=== PATIENT | female | born 1995 | race Caucasian/White ===

== ENCOUNTER 2021-06-12 21:40 | Emergency (ER) | payer MEDICAID, SELFPAY ==
[2021-06-12 21:42] VITALS: BP 162/83; PULSE 89; RESP 14; TEMP 35.7; O2SAT 99; BMI 46.0
--- NOTE | 2021-06-12 22:12 | RAD_ITS ---
INDICATION: pain EXAMINATION/TECHNIQUE: X-RAY - RIGHT XR Foot Min 3 Views 3 VIEWS COMPARISON: Right ankle x-rays from the same evening. FINDINGS: SOFT TISSUES: No soft tissue swelling or gas. No radiopaque foreign body. BONES/JOINTS: No acute fracture or malalignment. Preservation of the joint space and no degenerative bony proliferative changes. No sclerotic or destructive changes observed. RAD/Foot min 3 Views IMPRESSION: Negative. Electronically Signed: Yonatan Mack DO at 23:06 EST ,
--- NOTE | 2021-06-12 22:12 | RAD_ITS ---
INDICATION: pain EXAMINATION/TECHNIQUE: X-RAY - RIGHT XR Ankle Min 3 Views 3 VIEWS COMPARISON: Right foot x-rays obtained in conjunction with this exam. FINDINGS: SOFT TISSUES: Lateral ankle soft tissue swelling, mild. No joint effusion. No radiopaque foreign body. BONES/JOINTS: No acute fracture or malalignment. Preservation of the joint space and no degenerative bony proliferative changes. No sclerotic or destructive changes observed. RAD/Ankle min 3 Views IMPRESSION: Lateral ankle soft tissue swelling without fracture or malalignment. Electronically Signed: Yonatan Mack DO at 23:05 EST ,
--- NOTE | 2021-06-12 22:54 | EDS_ITS ---
HPI History of Present Illness Chief Complaint: Lower Extremity Injury Narrative Narrative: Patient is a 25-year-old female who states about 2 hours prior to arrival she was walking when she stepped awkwardly and rolled her right ankle inward. She states she fell to the ground but denies striking her head or any loss of consciousness. She states she has had pain and swelling with difficulty ambulating since the trauma. She states she broke her left ankle previously and she is concerned for fracture in the right with her fall and swelling and therefore comes in for evaluation. [facility] Medical History Cholecystectomy planned Perforated ulcer Home Medications hydrocodone-acetaminophen 1 tab PO Q6H PRN 3 Days #12 tab 06/12/21 [Rx Last Taken Unknown] Allergy/AdvReac Type Severity Reaction Status Date / Time No Known Allergies Allergy Verified 06/12/21 21:42 Surgical History (Updated 06/12/21 @ 21:50 by Neetu Markham) History of Social History Smoking Status: Never smoker [facility] ED Constitutional Constitutional ED: Denies chills or fever(s) ENT ENT ED: Denies sore throat Cardiovascular Cardiovascular: Denies chest pain Respiratory/Chest Respiratory/Chest: Denies cough or dyspnea Gastrointestinal Gastrointestinal: Denies abdominal pain, diarrhea, nausea or vomiting Genitourinary Genitourinary ED: Denies dysuria Musculoskeletal Musculoskeletal: Reports other Details: Positive right ankle pain ; Denies myalgias Integumentary Denies rash Neurologic Neurologic: Denies headache(s) Hematologic/Lymphatic Hematologic/Lymphatic: Denies easy bleeding or easy bruising EXAM Physical Exam Const Vital Signs: 06/12/21 21:42 Temperature 96.2 F L Temperature Source Temporal Pulse Rate 89 Respiratory Rate 14 Blood Pressure 162/83 H Blood Pressure Mean 109 Pulse Ox 99 Oxygen Delivery Method Room Air Positive well nourished and well developed General Appearance ED: well developed Eyes PERRL and EOMs intact bilaterally Neck supple Resp normal respiratory effort and clear to auscultation bilaterally Cardio regular rate and regular rhythm Extremity Extremity Narrative: There is soft tissue swelling to the right lower extremity over top the lateral malleolus. There is pain with palpation at the site. There is no obvious bony deformity or joint effusion. The right lower extremity is neurovascularly intact. The Achilles tendon is intact and ankle ligaments are stable. There is faint pain on palpation over top the second metatarsal of the foot. Otherwise remainder the exam is normal. Neuro oriented x3 and CN's II-XII intact bilaterally Sensorium / Orientation: alert Psych mental status grossly normal Skin no rashes or lesions noted Skin Narrative: Soft tissue swelling over top the right lateral malleolus as documented above MDM MDM MDM Narrative Medical decision making narrative: Patient presented to the ER after mechanical fall so there is no need for cardiac or syncope work-up. X-rays were obtained because of the pain and swelling and it shows no acute fracture dislocation. There is no obvious ligamentous tear either. Therefore this time there is no need for emergent orthopedic consultation or further evaluation. Patient was placed in a walking boot for stabilization and is otherwise safe for discharge. Radiography Diagnostic Testing: Clinical Impression(s) from Imaging Studies Ankle X-Ray 06/12/21 22:12 IMPRESSION: Lateral ankle soft tissue swelling without fracture or malalignment. Electronically Signed: Yonatan Mack DO at 23:05 EST , Foot X-Ray 06/12/21 22:12 IMPRESSION: Negative. Electronically Signed: Yonatan Mack DO at 23:06 EST , Discharge Plan Triage Chief Complaint: Lower Extremity Injury ED Provider: Suhas Barraza Dx/Rx/DC Orders Clinical Impression: Right ankle sprain Instructions: ED Ankle Sprain (Adult) Prescriptions: New hydrocodone-acetaminophen 5-325 mg tablet 1 tab PO Q6H PRN (Reason: pain) 3 Days Qty: 12 RF: 0 Primary Care Provider: Care Physician,No Primary Referrals: April Malloy MD [STAFF PHYSICIAN] - 1 Week if not improving Care Physician,No Primary [Primary Care Provider] - Activity Restrictions/Additional Instructions: Please wear your walking boot while up and moving for the next 1 to 2 weeks to help with stabilization of your sprained ankle and return the ER should you have any further concerns Disposition Disposition: Home, Self Care
== END 2021-06-12 23:37 | disposition home or self-care (01) ==
PROVIDERS: Emergency Provider Emergency Medicine; Visit Provider Emergency Medicine
DX: S93.401A Sprain of unspecified ligament of right ankle, initial encounter (principal); W19.XXXA Unspecified fall, initial encounter
CPT/HCPCS: 73610; 73630; 99283

== ENCOUNTER 2021-12-14 11:33 | Emergency (ER) | payer MEDICAID, SELFPAY ==
[2021-12-14 11:34] VITALS: BP 139/95; PULSE 92; RESP 16; TEMP 36.3; O2SAT 97; BMI 46.6
--- NOTE | 2021-12-14 11:47 | CT_ITS ---
STUDY: CT ABDOMEN AND PELVIS WITHOUT CONTRAST REASON FOR EXAM: Female, 26 years old. Pain RADIATION DOSAGE (If Supplied By Facility): CTDIvol = ( 24.09 ) mGy, DLP = ( 1324.31 ) mGycm TECHNIQUE: Transaxial images were obtained from the dome of the diaphragm to the symphysis pubis without oral contrast, and without intravenous contrast. Sagittal and coronal images were reconstructed. Individualized dose optimization techniques were used for this CT. COMPARISON: None. FINDINGS: The visualized lung bases are unremarkable. The visualized portions of the heart are within normal limits. There is decreased attenuation of the liver consistent with steatosis. There are surgical clips in the gallbladder fossa consistent with a prior cholecystectomy. Normal spleen. Normal pancreas. Normal bilateral adrenal glands. Normal right kidney. Normal left kidney. Normal visualized stomach. Normal small intestine. Normal colon. The appendix is visualized and appears normal. Normal abdominal aorta. Normal inferior vena cava. Normal retroperitoneum. Normal urinary bladder. Normal abdominal wall. Normal osseous structures. CT/Abdomen/Pelvis without Cont IMPRESSION: No acute abnormality. Electronically Signed: Yoni Vang MD at 13:32 EDT ,
--- NOTE | 2021-12-14 11:48 | ED.VIS.GI ---
HPI HPI - GI History of Present Illness Chief Complaint: Abd Pain Detail of Chief Complaint: Abdominal pain off and on x2 weeks Informant: patient Abdominal Pain/Flank Pain Current Severity: 8/10 Nausea/Vomiting/Emesis GI Symptom: Positive for Nausea Narrative Narrative: Patient presents the emergency department abdominal pain off and on for 2 weeks. Patient states over the last several days has been more continuous and more painful to the right side of the abdomen. Food seems to increase her nausea and she has been quite nauseated but has not vomited. Patient states she felt similarly before she needed to have her gallbladder removed. Patient also has history of a perforated peptic ulcer as a child that required surgery. Patient denies any hematemesis or black tarry stools. Last menstrual period was November 18. Patient denies dysuria. She denies fevers. [facility] Medical History Cholecystectomy planned Perforated ulcer Home Medications hydrocodone-acetaminophen 5-325mg 5mg-325mg 1 tab PO Q4H PRN PRN Pain 2 days #10 TABLETS 12/14/21 [Rx Last Taken Unknown] ondansetron 4 mg disintegrating tablet 4 mg PO Q8H PRN PRN Nausea #10 tabs 12/14/21 [Rx Last Taken Unknown] Allergy/AdvReac Type Severity Reaction Status Date / Time No Known Allergies Allergy Verified 12/14/21 11:33 Surgical History History of Social History Smoking Status: Never smoker ROS ROS ED Review of Systems ROS Unobtainable: other Constitutional Constitutional ED: Reports lethargy; Denies chills, fever(s), sweats or weight loss Eyes Eyes: Denies blurry vision, change in vision or diplopia ENT ENT ED: Denies rhinorrhea or sore throat Cardiovascular Cardiovascular: Denies chest pain, orthopnea or racing heartbeat Respiratory/Chest Respiratory/Chest: Denies cough, dyspnea, dyspnea on exertion, orthopnea or sputum Gastrointestinal Gastrointestinal: Reports abdominal pain and nausea; Denies diarrhea or vomiting Genitourinary Genitourinary ED: Denies dysuria, hematuria or urinary frequency Musculoskeletal Musculoskeletal: Denies arthralgias, back pain, myalgias or neck pain Integumentary Denies abscess, Abrasions or rash Neurologic Neurologic: Denies headache(s) or weakness Psychiatric Psychiatric: Denies anxiety, depression or suicidal thoughts Endocrine Endocrinology: Denies polydipsia, polyphagia or polyuria Hematologic/Lymphatic Hematologic/Lymphatic: Denies easy bleeding, easy bruising or lymphadenopathy Allergic/Immunologic Allergic/Immunologic ED: Denies mouth swelling, tongue swelling or urticaria EXAM Physical Exam Const Vital Signs: 12/14/21 11:34 Temperature 97.4 F L Temperature Source Temporal Pulse Rate 92 Respiratory Rate 16 Blood Pressure 139/95 H Blood Pressure Mean 109 Pulse Ox 97 Oxygen Delivery Method Room Air Positive well nourished and well developed General Appearance ED: well developed and NAD HEENT Reports TM's clear and moist mucous membranes normocephalic and atraumatic; Negative for trauma or tenderness Tympanic Membrane ED: Yes TM's clear Eyes PERRL and EOMs intact bilaterally General Eye ED: Negative for pale conjunctiva or scleral icterus Neck no lymphadenopathy, supple and no JVD General: Negative for tenderness Chest Wall inspection of chest normal and palpation of chest normal Chest: Negative for tenderness Resp normal respiratory effort and clear to auscultation bilaterally Effort and Inspection: Negative for respiratory distress or pain with movement Auscultation: Negative for rhonchi, wheezes or diminished lung sounds Cardio regular rate, regular rhythm, S1 normal heart sound, S2 normal heart sound and no murmurs Peripheral Pulses: pulses 2+ throughout GI normal to inspection, nondistended, normoactive bowel sounds, soft to palpation, non-distended and no masses GI Narrative: Patient with diffuse tenderness over the right upper quadrant and epigastric region. She is got some mild tenderness over the suprapubic region and right lower quadrant. There are some guarding. There is no rebound, rigidity, or peritoneal signs. Back/Spine no CVA tenderness and no thoracic nor lumbar tenderness Extremity normal to inspection General Extremety ED: Negative for edema General Extremity: Negative for edema Neuro oriented x3, CN's II-XII intact bilaterally, no sensory deficits noted and gait normal Sensorium / Orientation: awake, alert, oriented to person, oriented to place and oriented to time Motor Exam: strength 5/5 throughout and strength abnormal Psych mental status grossly normal Skin no rashes or lesions noted and no wounds MDM MDM MDM Narrative Medical decision making narrative: IV line established on arrival. Patient was medicated with morphine and Zofran. Lab work-up was normal. CT scan of the abdomen pelvis was unremarkable. Urinalysis was normal. hCG was negative. This point etiology of her pain is unclear. Patient will be given a prescription for a few [place] and advised to follow-up with her primary care physician 3 to 5 days. Patient advised to return if worsening pain, fever, vomiting, or condition worsen anyway. Lab Data Attestation: I reviewed the patient's lab results. Labs: Laboratory Results - last 24 hr 12/14/21 12/14/21 12/14/21 12:08 12:08 12:08 WBC 9.2 RBC 4.73 Hgb 13.3 Hct 41.7 MCV 88.2 MCH 28.1 MCHC 31.9 L RDW Std Deviation 42.0 RDW Coeff of Kd 13.0 Plt Count 353 MPV 9.9 Immature Gran % (Auto) 0.400 Neut % (Auto) 54.8 Lymph % (Auto) 33.0 [place] % (Auto) 8.0 Eos % (Auto) 2.9 Baso % (Auto) 0.9 Absolute Neuts (auto) 5.0 Absolute Lymphs (auto) 3.04 Nucleated RBC % 0 Sodium 140 Potassium 4.9 Chloride 108 H Carbon Dioxide 26.0 Anion Gap 6 BUN 10 Creatinine 0.82 Estim Creat Clear Calc 89.78 Est GFR (MDRD) Af Amer 107 Est GFR (MDRD) Non-Af 89 BUN/Creatinine Ratio 12.1 Glucose 100 Calcium 9.4 Total Bilirubin 0.20 AST 23 ALT 61 H Alkaline Phosphatase 97 Total Protein 7.2 Albumin 3.5 Globulin 3.7 Albumin/Globulin Ratio 0.9 Lipase 114 Serum , Qual NEGATIVE Urine Color Urine Clarity Urine pH Ur Specific [place] Urine Protein Urine Glucose (UA) Urine Ketones Urine Occult Blood Urine Nitrite Urine Bilirubin Urine Urobilinogen Ur Leukocyte Esterase Urine RBC Urine WBC Ur Squamous Epith Cells Urine Bacteria Urine Mucus 12/14/21 12:08 WBC RBC Hgb Hct MCV MCH MCHC RDW Std Deviation RDW Coeff of Kd Plt Count MPV Immature Gran % (Auto) Neut % (Auto) Lymph % (Auto) [place] % (Auto) Eos % (Auto) Baso % (Auto) Absolute Neuts (auto) Absolute Lymphs (auto) Nucleated RBC % Sodium Potassium Chloride Carbon Dioxide Anion Gap BUN Creatinine Estim Creat Clear Calc Est GFR (MDRD) Af Amer Est GFR (MDRD) Non-Af BUN/Creatinine Ratio Glucose Calcium Total Bilirubin AST ALT Alkaline Phosphatase Total Protein Albumin Globulin Albumin/Globulin Ratio Lipase Serum , Qual Urine Color Yellow Urine Clarity Clear Urine pH 6.0 Ur Specific [place] 1.010 Urine Protein Negative Urine Glucose (UA) Normal Urine Ketones Negative Urine Occult Blood Negative Urine Nitrite Negative Urine Bilirubin Negative Urine Urobilinogen Normal Ur Leukocyte Esterase Negative Urine RBC 0 SEEN Urine WBC 0 SEEN Ur Squamous Epith Cells 0-5 SEEN Urine Bacteria 1+ Urine Mucus 0 SEEN Radiography Diagnostic Testing: Clinical Impression(s) from Imaging Studies Abdomen/Pelvis CT 12/14/21 11:47 IMPRESSION: No acute abnormality. Electronically Signed: Yoni Vang MD at 13:32 EDT , Discharge Plan Triage Chief Complaint: Abd Pain ED Provider: Maricel Mckeon Dx/Rx/DC Orders Clinical Impression: Abdominal pain Instructions: ED Abdominal Pain Unkn Cause Fem Prescriptions: New hydrocodone-acetaminophen [hydrocodone-acetaminophen] 5-325 mg tablet 1 tab PO Q4H PRN PRN (Reason: Pain) 2 Days Qty: 10 0RF ondansetron [ondansetron] 4 mg tablet,disintegrating 4 mg PO Q8H PRN PRN (Reason: Nausea) Qty: 10 0RF Primary Care Provider: Care Physician,No Primary Referrals: Care Physician,No Primary [Primary Care Provider] - Activity Restrictions/Additional Instructions: See your primary care physician in 3 to 5 days. Disposition Disposition: Home, Self Care
[2021-12-14] MEDS: 0.9% Normal Saline 1,000 ML 125 ML IV (11:59)
[2021-12-14] MEDS: Morphine 4 MG/ML Syringe IV (11:59)
[2021-12-14] MEDS: Ondansetron 4 MG/2 ML Vial IV (11:59)
[2021-12-14 12:13] LABS: Mucous, Urine 0 SEEN /hpf (<or=2+); Red Blood Cells-Urine 0 SEEN /hpf (0-5); White Blood Cells 0 SEEN /hpf (0-5)
[2021-12-14 12:21] LABS: Absolute Lymphocyte Count 3.04 X10^3/uL (0.83-4.51); Basophil# 0.08 X10^3/uL; Basophil% 0.9 % (0-1); Eosinophil# 0.27 X10^3/uL; Eosinophils% 2.9 % (0-5); Hematocrit 41.7 % (37-47); Hemoglobin 13.3 g/dL (12.0-15.0); Lymphocyte # 3.04 X10^3/ul (0.83-4.51); Mean Corp Hgb Conc 31.9 g/dL (32-36); Mean Corpuscular Hgb 28.1 pg (27.0-32.0); Mean Corpuscular Volume 88.2 fL (81-99); Mean Platelet Vol. 9.9 fl (6.2-12.0); Monocyte# 0.74 X10^3/uL; NRBC Flagged by Analyzer 0 % (0-5); Neutrophil # 5.03 X10^3/uL (2.7-7.7); Neutrophil % 54.8 % (47-70); Platelet Count 353 K/mm3 (150-450); Red Blood Count 4.73 M/mm3 (4.2-5.4); White Blood Count 9.2 K/mm3 (4.4-11.0)
[2021-12-14 12:35] LABS: Color, Urine Yellow (Yellow); Glucose, Dipstick Normal (Normal); Ketone-Dipstick Negative (Negative); Leukocyte Esterase-Dipstick Negative /ul (Negative); Nitrite-Dipstick Negative (Negative); Occult Blood-Urine Negative /ul (Negative); Protein-Dipstick Negative (Negative); Urine Bilirubin Dipstick Negative (Negative); Urine Clarity Clear (Clear); Urine Urobilinogen Normal (Normal)
[2021-12-14 12:42] LABS: Internal QC Validated? YES +Cl - CLEAR BKGD; Pregnancy, Serum, hCG Quali. NEGATIVE Negative
[2021-12-14 12:45] LABS: Bacteria 1+ /hpf (None Seen); Squamous Epithelial Cells - UA 0-5 SEEN /hpf (5-10)
[2021-12-14 12:53] LABS: ALB/GLOB Ratio 0.9 RATIO (0.9-2.4); AST(SGOT) 23 U/L (15-37); Alanine Aminotransfer ALT/SGPT 61 U/L (13-56); Albumin, Serum 3.5 g/dL (3.2-5.0); Alkaline Phosphatase 97 U/L (45-117); Anion Gap 6 (5-15); BUN 10 mg/dL (7-18); BUN/Creat Ratio 12.1 RATIO (10-20); Calcium,Total 9.4 mg/dL (8.5-10.1); Chloride 108 mmol/L (98-107); Creatinine, Serum 0.82 mg/dL (0.55-1.02); EST Glomerular Filtration Rate 89 mL/min (>60); Est Glom Filt Rate - Afr Amer 107 mL/min (>60); Estimated Creatinine Clearance 89.78 ml/min; Globulin 3.7 g/dL (2.2-4.2); Glucose 100 mg/dL (74-106); Lipase 114 U/L (73-393); Potassium 4.9 mmol/L (3.5-5.1); Protein, Total 7.2 g/dL (6.4-8.2); Sodium Level 140 mmol/L (136-145)
== END 2021-12-14 14:11 | disposition home or self-care (01) ==
PROVIDERS: Emergency Provider Emergency Medicine; Visit Provider Emergency Medicine
DX: R10.9 Unspecified abdominal pain (principal); R11.0 Nausea; Z87.11 Personal history of peptic ulcer disease
CPT/HCPCS: 74176; 80053; 81001; 83690; 84703; 85025; 96361; 96374; 96375; 99283; J7030; A4216; J2405

== ENCOUNTER 2022-04-04 06:51 | Emergency (ER) | payer MEDICAID, SELFPAY ==
[2022-04-04 06:55] VITALS: BP 113/91; PULSE 80; RESP 19; TEMP 36.3; O2SAT 100; BMI 46.5
--- NOTE | 2022-04-04 07:21 | ED.VIS.GI ---
HPI HPI - GI History of Present Illness Chief Complaint: Abd Pain Informant: patient Abdominal Pain/Flank Pain Onset: Days (10) Context: Gradual Onset Timing: Continuous Quality: Sharp and Stabbing Location: RUQ Worsened by: Food Relieved by: Nothing Nausea/Vomiting/Emesis GI Symptom: Positive for Nausea and Vomiting Quality: Negative for Blood streaks, Coffee ground or Hematemesis Diarrhea/Melena/Hematochezia GI Symptom: Positive for Diarrhea; Negative for Melena or Hematochezia Associated Symptoms Associated Symptoms: Negative for Dysuria, Frequency or Hematuria Narrative Narrative: Patient presents with right upper quadrant abdominal pain that has been constant for the past 10 days. Patient states it has gradually gotten worse. Patient describes her pain as sharp and stabbing. Patient states it is worse immediately after she eats. Patient denies any fevers or chills. Patient admits to some nausea and vomiting. Patient also admits to some diarrhea. Patient states her stools have been dark but states that is normal for her. Patient denies any dysuria or hematuria. Patient denies any urinary frequency. Patient denies any abnormal vaginal bleeding or discharge. Patient denies any radiation of the pain into her back or shoulder. Patient states she has a history of a perforated ulcer. Patient states she has also had a cholecystectomy. [facility] Medical History (Updated 04/04/22 @ 11:[address] Jerry Tomlin DO) Cholecystectomy planned Perforated ulcer Home Medications hydrocodone-acetaminophen 5-325mg 5mg-325mg 1 tab PO Q6H PRN PRN Pain 3 days #10 TABLETS 04/04/22 [Rx Last Taken Unknown] omeprazole 20 mg capsule,delayed release 20 mg PO DAILY #30 CAPSULES 04/04/22 [Rx Last Taken Unknown] Allergy/AdvReac Type Severity Reaction Status Date / Time No Known Allergies Allergy Verified 04/04/22 06:59 Surgical History (Updated 04/04/22 @ 07:[address] Jerry Tomlin DO) History of Hx of cholecystectomy Social History Smoking Status: Never smoker ROS ROS ED Constitutional Constitutional ED: Denies chills or fever(s) Eyes Eyes: Denies blurry vision or change in vision ENT ENT ED: Denies rhinorrhea or sore throat Cardiovascular Cardiovascular: Denies chest pain or palpitations Respiratory/Chest Respiratory/Chest: Denies cough or dyspnea Gastrointestinal Gastrointestinal: Reports abdominal pain, diarrhea, nausea and vomiting Genitourinary Genitourinary ED: Denies dysuria or hematuria Musculoskeletal Musculoskeletal: Denies back pain or neck pain Integumentary Denies abscess or rash Neurologic Neurologic: Denies headache(s) or weakness Allergic/Immunologic Allergic/Immunologic ED: Denies mouth swelling or urticaria EXAM Physical Exam Const Vital Signs: 04/04/22 06:55 Temperature 97.4 F L Temperature Source Temporal Pulse Rate 80 Respiratory Rate 19 H Blood Pressure 113/91 H Blood Pressure Mean 98 Pulse Ox 100 Oxygen Delivery Method Room Air Positive well nourished, well developed and obese General Appearance ED: well developed and NAD Nutritional Appearance: obese HEENT Reports moist mucous membranes Neck supple and no JVD Resp normal respiratory effort and clear to auscultation bilaterally Cardio regular rate, regular rhythm and no murmurs GI normal to inspection, nondistended, normoactive bowel sounds Palpation: soft and tender RUQ; Negative for guarding or rebound tenderness present Extremity normal to inspection General Extremety ED: Negative for edema or tenderness General Extremity: Negative for edema Neuro oriented x3, CN's II-XII intact bilaterally, moves all extremities and no sensory deficits noted Sensorium / Orientation: alert Motor Exam: strength 5/5 throughout Psych mental status grossly normal Skin no rashes or lesions noted MDM MDM MDM Narrative Medical decision making narrative: Patient was given IV fluids, morphine, and Zofran. CBC was within normal limits. Comprehensive metabolic profile was within normal limits. Lactate was normal. Lipase was normal. Urinalysis does not show any evidence of urinary tract infection or hematuria. Serum hCG was negative. CT scan of the abdomen pelvis was obtained. There is no acute intra-abdominal abnormality. This was interpreted by the radiologist and reviewed by myself. Patient was advised of her findings. Patient was advised that this may be recurrence of her ulcer. Patient was given a prescription for a short course of [place] for pain. Patient was started on omeprazole. Patient was instructed to eat a bland diet and advance as tolerated. Patient was also given a referral for Dr. Morales for gastroenterology follow-up. Patient was instructed to follow-up with her primary care physician in 5 to 7 days. Patient understood and was agreeable with the plan. All questions were answered. Lab Data Attestation: I reviewed the patient's lab results. Labs: Laboratory Results - last 24 hr 04/04/22 04/04/22 04/04/22 07:00 07:00 07:00 WBC 10.5 RBC 4.69 Hgb 12.9 Hct 40.7 MCV 86.8 MCH 27.5 MCHC 31.7 L RDW Std Deviation 40.2 RDW Coeff of Kd 12.7 Plt Count 391 MPV 10.3 Immature Gran % (Auto) 0.300 Neut % (Auto) 55.7 Lymph % (Auto) 30.4 [place] % (Auto) 8.5 Eos % (Auto) 4.3 Baso % (Auto) 0.8 Absolute Neuts (auto) 5.8 Absolute Lymphs (auto) 3.19 Nucleated RBC % 0 Sodium 139 Potassium 3.7 Chloride 104 Carbon Dioxide 30.0 Anion Gap 5 BUN 15 Creatinine 1.10 H Estim Creat Clear Calc 66.92 Est GFR (MDRD) Af Amer 77 Est GFR (MDRD) Non-Af 64 BUN/Creatinine Ratio 13.6 Glucose 132 H Lactic Acid 0.5 Calcium 8.9 Total Bilirubin 0.40 AST 19 ALT 49 Alkaline Phosphatase 81 Total Protein 7.4 Albumin 3.5 Globulin 3.9 Albumin/Globulin Ratio 0.9 Lipase 124 Serum , Qual Urine Color Urine Clarity Urine pH Ur Specific [place] Urine Protein Urine Glucose (UA) Urine Ketones Urine Occult Blood Urine Nitrite Urine Bilirubin Urine Urobilinogen Ur Leukocyte Esterase Urine RBC Urine WBC Ur Squamous Epith Cells Urine Bacteria Urine Mucus 04/04/22 04/04/22 07:00 07:40 WBC RBC Hgb Hct MCV MCH MCHC RDW Std Deviation RDW Coeff of Kd Plt Count MPV Immature Gran % (Auto) Neut % (Auto) Lymph % (Auto) [place] % (Auto) Eos % (Auto) Baso % (Auto) Absolute Neuts (auto) Absolute Lymphs (auto) Nucleated RBC % Sodium Potassium Chloride Carbon Dioxide Anion Gap BUN Creatinine Estim Creat Clear Calc Est GFR (MDRD) Af Amer Est GFR (MDRD) Non-Af BUN/Creatinine Ratio Glucose Lactic Acid Calcium Total Bilirubin AST ALT Alkaline Phosphatase Total Protein Albumin Globulin Albumin/Globulin Ratio Lipase Serum , Qual NEGATIVE Urine Color Yellow Urine Clarity Sl. Cloudy Urine pH 5.0 Ur Specific [place] 1.025 Urine Protein 30 H Urine Glucose (UA) Normal Urine Ketones 5 H Urine Occult Blood Negative Urine Nitrite Negative Urine Bilirubin Negative Urine Urobilinogen Normal Ur Leukocyte Esterase 25 H Urine RBC 0 SEEN Urine WBC 0-5 SEEN Ur Squamous Epith Cells 5-10 SEEN Urine Bacteria 2+ Urine Mucus 2+ Radiography Diagnostic Testing: Clinical Impression(s) from Imaging Studies Abdomen/Pelvis CT 04/04/22 07:26 IMPRESSION: No acute findings. Electronically Signed: Federico Smith, at 9:52 EST , Discharge Plan Triage Chief Complaint: Abd Pain ED Provider: Jerry Tomlin Dx/Rx/DC Orders Clinical Impression: Right upper quadrant abdominal pain, History of peptic ulcer disease Instructions: ED Abdominal Pain Unkn Cause Fem, ED Gastritis Ulcer No Abx Prescriptions: New hydrocodone-acetaminophen [hydrocodone-acetaminophen] 5-325 mg tablet 1 tab PO Q6H PRN PRN (Reason: Pain) 3 Days Qty: 10 0RF omeprazole [omeprazole] 20 mg capsule,delayed release(DR/EC) 20 mg PO DAILY Qty: 30 0RF Primary Care Provider: Care Physician,No Primary Referrals: April Malloy MD [Med Staff - Editor Managing Director] - 5-7 Days Martin Morales DO [Med Staff - Active Staff] - 5-7 Days Care Physician,No Primary [Primary Care Provider] - Disposition Disposition: Home, Self Care
--- NOTE | 2022-04-04 07:26 | CT_ITS ---
INDICATION: Abdominal pain -- IV PO Contrast EXAMINATION: CT ABDOMEN AND PELVIS WITH CONTRAST - CT Abdomen And Pelvis W/ Contrast Injection TECHNIQUE: Helically acquired images were obtained of the abdomen and pelvis following IV contrast. A radiation dose optimization technique was used for this scan. IV Contrast dosage and agent: 100 cc of [id number] Oral contrast: GASTROGRAFIN COMPARISON: CT abdomen/pelvis from 12/14/2021 FINDINGS: Lower thorax: The visualized lung bases are clear. Liver: Normal morphology. No acute findings. Gallbladder: Cholecystectomy. No significant bile duct dilation. Spleen: Unremarkable. Pancreas: No parenchymal lesions or duct dilation. Adrenal glands: Unremarkable. Kidneys: No cystic or solid masses. No hydronephrosis. No acute findings. Bladder: Underdistended and difficult to assess. No surrounding inflammatory changes. GI tract: Oral contrast reaches the cecum. No significant wall thickening or bowel dilation. Normal appendix. Stable surgical clips adjacent to the antrum of the stomach. No acute findings. Peritoneum/mesentery/retroperitoneum: No free air or free fluid. No masses or lymphadenopathy. Pelvis: No free air or free fluid. No masses or lymphadenopathy. Vasculature: No acute findings. Bones/soft tissues: No acute fracture or subluxation. No destructive osseous lesions. Soft tissues are unremarkable. CT/Abdomen/Pelvis WITH Contrast IMPRESSION: No acute findings. Electronically Signed: Federico Smith, at 9:52 EST ,
[2022-04-04] MEDS: Ondansetron 4 MG/2 ML Vial IV (07:42)
[2022-04-04] MEDS: Morphine 4 MG/ML Syringe IV (07:42)
[2022-04-04] MEDS: 0.9% Normal Saline 1,000 ML 1000 ML IV (07:43)
[2022-04-04 07:47] LABS: Red Blood Cells-Urine 0 SEEN /hpf (0-5)
[2022-04-04 07:58] LABS: Absolute Lymphocyte Count 3.19 X10^3/uL (0.83-4.51); Absolute Neutrophil Count 5.8 X10^3/uL (2.0-7.7); Basophil# 0.08 X10^3/uL; Basophil% 0.8 % (0-1); Eosinophil# 0.45 X10^3/uL; Eosinophils% 4.3 % (0-5); Hematocrit 40.7 % (37-47); Hemoglobin 12.9 g/dL (12.0-15.0); Lymphocyte # 3.19 X10^3/ul (0.83-4.51); Lymphocyte % 30.4 % (19-41); Mean Corp Hgb Conc 31.7 g/dL (32-36); Mean Corpuscular Hgb 27.5 pg (27.0-32.0); Mean Corpuscular Volume 86.8 fL (81-99); Mean Platelet Vol. 10.3 fl (6.2-12.0); Monocyte# 0.89 X10^3/uL; Monocyte% 8.5 % (0-10); NRBC Flagged by Analyzer 0 % (0-5); Neutrophil # 5.84 X10^3/uL (2.7-7.7); Neutrophil % 55.7 % (47-70); Platelet Count 391 K/mm3 (150-450); RBC Distribution Width CV 12.7 % (11.6-14.6); RBC Distribution Width SD 40.2 fl (35.1-43.9); Red Blood Count 4.69 M/mm3 (4.2-5.4); White Blood Count 10.5 K/mm3 (4.4-11.0)
[2022-04-04 08:00] LABS: Internal QC Validated? YES +Cl - CLEAR BKGD; Pregnancy, Serum, hCG Quali. NEGATIVE Negative
[2022-04-04 08:07] LABS: ALB/GLOB Ratio 0.9 RATIO (0.9-2.4); AST(SGOT) 19 U/L (15-37); Alanine Aminotransfer ALT/SGPT 49 U/L (13-56); Albumin, Serum 3.5 g/dL (3.2-5.0); Alkaline Phosphatase 81 U/L (45-117); Anion Gap 5 (5-15); BUN 15 mg/dL (7-18); BUN/Creat Ratio 13.6 RATIO (10-20); Calcium,Total 8.9 mg/dL (8.5-10.1); Chloride 104 mmol/L (98-107); EST Glomerular Filtration Rate 64 mL/min (>60); Est Glom Filt Rate - Afr Amer 77 mL/min (>60); Estimated Creatinine Clearance 66.92 ml/min; Globulin 3.9 g/dL (2.2-4.2); Glucose 132 mg/dL (74-106); Lipase 124 U/L (73-393); Potassium 3.7 mmol/L (3.5-5.1); Protein, Total 7.4 g/dL (6.4-8.2); Sodium Level 139 mmol/L (136-145)
[2022-04-04 08:19] LABS: Color, Urine Yellow (Yellow); Glucose, Dipstick Normal (Normal); Ketone-Dipstick 5 mg/dl (Negative); Leukocyte Esterase-Dipstick 25 /ul (Negative); Nitrite-Dipstick Negative (Negative); Occult Blood-Urine Negative /ul (Negative); Protein-Dipstick 30 mg/dl (Negative); Specific Gravity, Urine 1.025 (1.002-1.030); Urine Bilirubin Dipstick Negative (Negative); Urine Clarity Sl. Cloudy (Clear); Urine Urobilinogen Normal (Normal)
[2022-04-04 08:22] LABS: Lactic Acid 0.5 mmol/L (0.4-1.9)
[2022-04-04 08:37] LABS: Bacteria 2+ /hpf (None Seen); Mucous, Urine 2+ /hpf (<or=2+); Squamous Epithelial Cells - UA 5-10 SEEN /hpf (5-10); White Blood Cells 0-5 SEEN /hpf (0-5)
[2022-04-04 11:46] VITALS: RESP 16
== END 2022-04-04 11:47 | disposition home or self-care (01) ==
PROVIDERS: Emergency Provider Emergency Medicine; Visit Provider Emergency Medicine
DX: R10.11 Right upper quadrant pain (principal); R11.2 Nausea with vomiting, unspecified; R19.7 Diarrhea, unspecified; E66.9 Obesity, unspecified; Z87.19 Personal history of other diseases of the digestive system
CPT/HCPCS: 74177; 80053; 81001; 83605; 83690; 84703; 85025; 99282; J7030; Q9967; A4216; J2405

== ENCOUNTER → 2022-06-30 | Outpatient (CLI) | payer MEDICAID, SELFPAY ==
[2022-07-01 22:06] LABS: Chlamydia By Nucleic Acid AMP Negative (Negative)
[2022-07-01 22:12] LABS: Gonococcus By Nucleic Acid AMP Negative (Negative)
== END | disposition home or self-care (01) ==
PROVIDERS: Referring Provider Obstetrics & Gynecology; Visit Provider Obstetrics & Gynecology
DX: O09.90 Supervision of high risk pregnancy, unspecified, unspecified trimester (principal); Z3A.00 Weeks of gestation of pregnancy not specified
CPT/HCPCS: 87086; 87088; 87491; 87591

== ENCOUNTER → 2022-07-14 | Outpatient (CLI) | payer MEDICAID, SELFPAY ==
[2022-07-14 12:59] LABS: Absolute Lymphocyte Count 2.92 X10^3/uL (0.83-4.51); Absolute Neutrophil Count 6.6 X10^3/uL (2.0-7.7); Basophil# 0.05 X10^3/uL; Basophil% 0.5 % (0-1); Eosinophil# 0.17 X10^3/uL; Eosinophils% 1.6 % (0-5); Hematocrit 37.1 % (37-47); Lymphocyte # 2.92 X10^3/ul (0.83-4.51); Lymphocyte % 28.3 % (19-41); Mean Corp Hgb Conc 32.3 g/dL (32-36); Mean Corpuscular Hgb 28.3 pg (27.0-32.0); Mean Corpuscular Volume 87.5 fL (81-99); Mean Platelet Vol. 10.5 fl (6.2-12.0); Monocyte# 0.56 X10^3/uL; Monocyte% 5.4 % (0-10); NRBC Flagged by Analyzer 0 % (0-5); Neutrophil # 6.57 X10^3/uL (2.7-7.7); Neutrophil % 63.8 % (47-70); Platelet Count 328 K/mm3 (150-450); RBC Distribution Width CV 13.3 % (11.6-14.6); RBC Distribution Width SD 42.6 fl (35.1-43.9); Red Blood Count 4.24 M/mm3 (4.2-5.4); White Blood Count 10.3 K/mm3 (4.4-11.0)
[2022-07-14 13:10] LABS: Glucose Challenge Gest 1H 50g 120 mg/dL (70-140)
[2022-07-14 13:55] LABS: NATERA MAILED SPECIMEN
[2022-07-14 14:08] LABS: HIV - WCH Non-Reactive (Nonreactive); Hepatitis B Surface Antigen Non-Reactive (Nonreactive); Hepatitis C Antibody Non-Reactive (Nonreactive); Rubella IgG Reactive (Nonreactive); Syphilis Antibodies Non-reactive
== END | disposition home or self-care (01) ==
LOC: PAVLAB 11:40
PROVIDERS: Referring Provider Obstetrics & Gynecology; Visit Provider Obstetrics & Gynecology
DX: O09.90 Supervision of high risk pregnancy, unspecified, unspecified trimester (principal); Z31.430 Encounter of female for testing for genetic disease carrier status for procreative management; Z3A.00 Weeks of gestation of pregnancy not specified
CPT/HCPCS: 36415; 82950; 85025; 86703; 86762; 86780; 86803; 86850; 86900; 86901; 87340

== ENCOUNTER 2022-08-11 03:30 | Emergency (ER) | payer MEDICAID, SELFPAY ==
[2022-08-11 03:31] VITALS: BP 142/90; PULSE 103; RESP 18; TEMP 36.4; O2SAT 99; BMI 47.0
--- NOTE | 2022-08-11 03:53 | ED.VIS.FEGU ---
HPI HPI - Female History of Present Illness Chief Complaint: Vag Bld, Preg Informant: patient Narrative Narrative: G4, P1 15 weeks and 1 day gestation by ultrasound followed by [facility] presents with sudden vaginal bleeding 2 hours prior to arrival as heavy. Mild lower abdominal cramping. No urinary symptoms. No sexual intercourse in last 48 hours. Denies trauma. Blood type O+. Denies alcohol tobacco or illicit drug use. Had miscarriages previously x2. Prior similar symptoms: Yes PFSH PFSH Medical History Cholecystectomy planned Perforated ulcer Home Medications vitamin #56-iron 35 mg and 5 mg-folic acid 1 mg-dha capsule 1 cap PO QHS #30 caps 06/30/22 [Rx Last Taken Unknown] cephalexin 500 mg capsule 500 mg PO TID #15 CAPSULES 08/11/22 [Rx Last Taken Unknown] Allergy/AdvReac Type Severity Reaction Status Date / Time No Known Allergies Allergy Verified 07/30/22 15:51 Surgical History History of Hx of cholecystectomy Social History adopted: No household members: children housing: house number of children: 1 current occupational status: employed current occupation: [employer] pets and animals: No sexually active: Yes Smoking Status: Never smoker alcohol intake: never substance use type: does not use caffeine: Yes Type: coffee Number of servings: 1 eating out: 1-3 times/week seatbelt use: always do you feel safe at home: Yes additional social history: [facility] YAP ED Constitutional Constitutional ED: Denies chills, fever(s) or sweats Eyes Eyes: Denies change in vision ENT ENT ED: Denies dysphagia or sore throat Cardiovascular Cardiovascular: Denies chest pain, leg edema, palpitations or racing heartbeat Respiratory/Chest Respiratory/Chest: Denies cough, dyspnea or dyspnea on exertion Gastrointestinal Gastrointestinal: Denies abdominal pain, diarrhea, nausea or vomiting Genitourinary Genitourinary ED: Reports other Details: Vaginal bleeding ; Denies dysuria, hematuria or urinary frequency Musculoskeletal Musculoskeletal: Denies back pain, extremity pain or neck pain Integumentary Denies rash or wounds Neurologic Neurologic: Denies headache(s), paresthesias or weakness EXAM Physical Exam Const Vital Signs: 08/11/22 03:31 08/11/22 06:43 Temperature 97.6 F L Temperature Source Temporal Pulse Rate 103 H 90 Respiratory Rate 18 16 Blood Pressure 142/90 H Blood Pressure Mean 107 Pulse Ox 99 98 Oxygen Delivery Method Room Air Positive well nourished and well developed General Appearance ED: well developed and NAD HEENT Reports moist mucous membranes normocephalic and atraumatic Eyes PERRL, EOMs intact bilaterally and conjunctivae normal General Eye ED: Yes normal appearance of both eyes Neck no lymphadenopathy and supple General: Negative for tenderness Chest Wall Chest: Negative for tenderness Resp normal respiratory effort and normal air movement Effort and Inspection: symmetric chest movement; Negative for respiratory distress Cardio regular rate, regular rhythm and no murmurs Peripheral Pulses: pulses 2+ throughout GI normal to inspection, nondistended, normoactive bowel sounds and non-tender Palpation: Negative for guarding or rebound tenderness present Back/Spine no CVA tenderness and no thoracic nor lumbar tenderness Extremity normal to inspection General Extremety ED: Negative for edema or tenderness General Extremity: Negative for edema Neuro oriented x3 and no sensory deficits noted Sensorium / Orientation: awake and alert Skin no rashes or lesions noted and no wounds MDM MDM MDM Narrative Medical decision making narrative: Interventions / MDM: Differential diagnosis: Threatened miscarriage, UTI Diagnosis considered but do not suspect: N/A My EKG interpretation: N/A Imaging independently reviewed and interpreted by myself: N/A External documents reviewed: N/A Test considered but not ordered:N/A ED course: Bedside ultrasound posterior placenta positive movement. heart tones 150. Urine with signs of infection culture sent she started on Keflex. Records note ABO Rh O+. [place] [address]. Pelvic rest discussed. Monitoring symptoms. Follow-up with her OB. All questions were answered. Re-evaluation: stable Disposition discussed with patient/family/significant other: Patient Case discussed with consulting clinician: N/A Lab Data Attestation: I reviewed the patient's lab results. Labs: Laboratory Results - last 24 hr 08/11/22 08/11/22 08/11/22 04:10 04:33 04:33 Hgb 12.0 Hct 37.0 HCG, Quant 91790 H Urine Color Yellow Urine Clarity Clear Urine pH 6.0 Ur Specific Lowry 1.030 Urine Protein 30 H Urine Glucose (UA) Normal Urine Ketones Negative Urine Occult Blood 250 H Urine Nitrite Negative Urine Bilirubin Negative Urine Urobilinogen Normal Ur Leukocyte Esterase 100 H Urine RBC 10-25 SEEN Urine WBC 5-10 SEEN Ur Squamous Epith Cells 0-5 SEEN Urine Bacteria 2+ Hyaline Casts 5-10 SEEN Urine Mucus 0 SEEN Discharge Plan Triage Chief Complaint: Vag Bld, Preg ED Provider: Triston Patel Dx/Rx/DC Orders Clinical Impression: Threatened miscarriage, Urinary tract infection during Instructions: Urinary Tract Infections in Women, ED Possible Miscarriage ... Prescriptions: New cephalexin [cephalexin] 500 mg capsule 500 mg PO TID Qty: 15 0RF No Action PNV #[id number] acid-dha 35 mg iron-5 mg iron-1 mg capsule 1 cap PO QHS Qty: 30 12RF Stand Alone Forms: ED Work / School Excuse Primary Care Provider: Care Physician,No Primary Referrals: Laisha Fernández MD [Med Staff - Active Staff] - 1 Day Care Physician,No Primary [Primary Care Provider] - Activity Restrictions/Additional Instructions: Bedside ultrasound positive movement, heart tones 150. UTI in culture sent. Take antibiotic as per 5. Pelvic rest as discussed. hCG 59228. Disposition Disposition: Home, Self Care Discharge Date/Time: 08/11/22 06:43
[2022-08-11 04:14] LABS: Mucous, Urine 0 SEEN /hpf (<or=2+)
[2022-08-11 04:16] LABS: Color, Urine Yellow (Yellow); Glucose, Dipstick Normal (Normal); Ketone-Dipstick Negative (Negative); Leukocyte Esterase-Dipstick 100 /ul (Negative); Nitrite-Dipstick Negative (Negative); Occult Blood-Urine 250 /ul (Negative); Protein-Dipstick 30 mg/dl (Negative); Urine Bilirubin Dipstick Negative (Negative); Urine Clarity Clear (Clear); Urine Urobilinogen Normal (Normal)
[2022-08-11 04:39] LABS: Bacteria 2+ /hpf (None Seen); Hyaline Cast 5-10 SEEN /lpf (0-5); Red Blood Cells-Urine 10-25 SEEN /hpf (0-5); Squamous Epithelial Cells - UA 0-5 SEEN /hpf (5-10); White Blood Cells 5-10 SEEN /hpf (0-5)
[2022-08-11] MEDS: Cephalexin 250 MG Capsule 500 MG PO (05:53)
[2022-08-11 06:43] VITALS: PULSE 90; RESP 16; O2SAT 98
== END 2022-08-11 06:43 | disposition home or self-care (01) ==
PROVIDERS: Emergency Provider Emergency Medicine; Visit Provider Emergency Medicine
DX: O23.42 Unspecified infection of urinary tract in pregnancy, second trimester (principal); N39.0 Urinary tract infection, site not specified; O20.0 Threatened abortion; Z3A.15 15 weeks gestation of pregnancy
CPT/HCPCS: 76815; 76817; 81001; 84702; 85014; 85018; 87086; 87088; 99282; A4216

== ENCOUNTER → 2022-08-11 | Outpatient (CLI) | payer MEDICAID, SELFPAY ==
--- NOTE | 2022-08-11 18:25 | US_ITS ---
EXAM: US , LIMITED CLINICAL INDICATION: None provided. spotting TECHNIQUE: Real-time limited ultrasound of the maternal uterus with image documentation. COMPARISON: No relevant prior studies available. FINDINGS: FETUS: Impression intrauterine gestation. There appears to be an incomplete fusion of the chorion and amnion at the placental cord insertion. No measurements were obtained. POSITION: The fetus in the breech position. HEART RATE: heart rate is 160 bpm. PLACENTA: Placenta is posterior. CERVIX: Cervix measures 4.1 cm. ADNEXA: The left ovary measures 2.4 x 2.4 x 1.9 cm. Right ovary measures 2.5 x 2.6 x 1.7 cm. FREE FLUID: Largest fluid pocket is 4.0 x 4.9 cm. IMPRESSION: 1. Intrauterine gestation with heart rate of 162 bpm. The cervix is closed and there is no evidence of placenta previa. 2. Incomplete fusion of the chorion and amnion at the level of the placental cord insertion. Electronically Signed: Reynold Santamaria MD at 20:55 EDT , EXAM: US , TRANSVAGINAL CLINICAL INDICATION: None provided. spotting TECHNIQUE: Real-time transvaginal obstetrical ultrasound of the maternal pelvis and a first trimester with image documentation. Transvaginal imaging was used for better evaluation of the fetus and adnexa. COMPARISON: No relevant prior studies available. FINDINGS: GESTATION: There is an intrauterine gestation. The fetus is in the breech position. heart rate is 162 bpm. No measurements were obtained. ANATOMY: There does appear to be an area of incomplete fusion of the chorion and amnion the region of the central cord insertion. PLACENTA/AMNIOTIC FLUID: Placenta is posterior. There is no evidence of placenta previa. UTERUS/CERVIX: Unremarkable. No myometrial mass. OVARIES: The right ovary measures 2.6 x 1.7 x 2.5 cm. The left ovary measures 2.4 x 1.9 x 2.4 cm. No mass. FREE FLUID: The largest fluid pocket is 4 x 4.9 cm. US/OB Limited (No Biometrics) IMPRESSION: 1. Intrauterine gestation with heart rate of 162 bpm. 2. Apparent incomplete fusion of the chorion and amnion in the region of the placental cord insertion. Electronically Signed: Reynold Santamaria MD at 20:57 EDT ,
== END | disposition home or self-care (01) ==
LOC: US 18:24
PROVIDERS: Visit Provider Nurse Practitioner Women's Health
DX: O20.0 Threatened abortion (principal); Z3A.00 Weeks of gestation of pregnancy not specified
CPT/HCPCS: 76815; 76817

== ENCOUNTER → 2022-09-22 | Outpatient (CLI) | payer MEDICAID, SELFPAY | END | disposition home or self-care (01) | LOC: LABSPEC 15:07 | PROVIDERS: Referring Provider Advanced Practice Midwife; Visit Provider Advanced Practice Midwife | DX: N39.0 Urinary tract infection, site not specified (principal) | CPT/HCPCS: 87086; 87088 ==

== ENCOUNTER → 2022-10-21 | Outpatient (CLI) | payer MEDICAID, SELFPAY ==
[2022-10-21 12:56] LABS: Absolute Lymphocyte Count 2.54 X10^3/uL (0.83-4.51); Absolute Neutrophil Count 8.6 X10^3/uL (2.0-7.7); Basophil# 0.05 X10^3/uL; Basophil% 0.4 % (0-1); Eosinophil# 0.22 X10^3/uL; Eosinophils% 1.8 % (0-5); Hematocrit 33.8 % (37-47); Hemoglobin 10.8 g/dL (12.0-15.0); Lymphocyte # 2.54 X10^3/ul (0.83-4.51); Lymphocyte % 20.8 % (19-41); Mean Corpuscular Hgb 27.8 pg (27.0-32.0); Mean Corpuscular Volume 87.1 fL (81-99); Mean Platelet Vol. 10.2 fl (6.2-12.0); Monocyte# 0.68 X10^3/uL; Monocyte% 5.6 % (0-10); NRBC Flagged by Analyzer 0 % (0-5); Neutrophil # 8.63 X10^3/uL (2.7-7.7); Neutrophil % 70.7 % (47-70); Platelet Count 324 K/mm3 (150-450); RBC Distribution Width CV 13.2 % (11.6-14.6); RBC Distribution Width SD 41.4 fl (35.1-43.9); Red Blood Count 3.88 M/mm3 (4.2-5.4); White Blood Count 12.2 K/mm3 (4.4-11.0)
[2022-10-21 13:44] LABS: HIV - WCH Non-Reactive (Nonreactive); Syphilis Antibodies Non-reactive
[2022-10-22 12:09] LABS: HCV Quant. RNA PCR HCV Not Detected IU/mL (.)
[2022-10-24 07:08] LABS: Chlamydia By Nucleic Acid AMP Negative (Negative); Gonococcus By Nucleic Acid AMP Negative (Negative)
== END | disposition home or self-care (01) ==
PROVIDERS: Referring Provider Obstetrics & Gynecology; Visit Provider Obstetrics & Gynecology
DX: Z20.2 Contact with and (suspected) exposure to infections with a predominantly sexual mode of transmission (principal); O09.90 Supervision of high risk pregnancy, unspecified, unspecified trimester; Z3A.00 Weeks of gestation of pregnancy not specified
CPT/HCPCS: 36415; 85025; 86695; 86696; 86703; 86780; 87491; 87522; 87591

== ENCOUNTER → 2022-11-03 | Outpatient (CLI) | payer MEDICAID, SELFPAY ==
[2022-11-03 14:14] LABS: Glucose Challenge Gest 1H 50g 200 mg/dL (70-140)
== END | disposition home or self-care (01) ==
PROVIDERS: Referring Provider Obstetrics & Gynecology; Visit Provider Obstetrics & Gynecology
DX: Z13.1 Encounter for screening for diabetes mellitus (principal)
CPT/HCPCS: 36415; 82950

== ENCOUNTER 2022-11-10 16:30 | Outpatient (CLI) | payer MEDICAID, SELFPAY ==
[2022-11-10] VITALS (18 sets, daily range): BP systolic 130–168; BP diastolic 60–86; PULSE 87–105; TEMP 36.3–36.8; O2SAT 98; BMI 48.1
[2022-11-10 17:28] LABS: Hematocrit 31.9 % (37-47); Hemoglobin 10.8 g/dL (12.0-15.0); Mean Corp Hgb Conc 33.9 g/dL (32-36); Mean Corpuscular Hgb 28.5 pg (27.0-32.0); Mean Corpuscular Volume 84.2 fL (81-99); Mean Platelet Vol. 10.4 fl (6.2-12.0); Platelet Count 310 K/mm3 (150-450); RBC Distribution Width CV 13.2 % (11.6-14.6); RBC Distribution Width SD 39.9 fl (35.1-43.9); Red Blood Count 3.79 M/mm3 (4.2-5.4); White Blood Count 10.9 K/mm3 (4.4-11.0)
[2022-11-10 17:52] LABS: AST(SGOT) 18 U/L (15-37); Alanine Aminotransfer ALT/SGPT 29 U/L (13-56); Creatinine, Serum 0.59 mg/dL (0.55-1.02); EST Glomerular Filtration Rate 129 mL/min (>60); Est Glom Filt Rate - Afr Amer 156 mL/min (>60); Estimated Creatinine Clearance 123.68 ml/min; Uric Acid 3.8 mg/dL (2.6-6.0)
[2022-11-10 18:12] LABS: Protein, Urine (Random) 21.1 mg/dL (<11.9); Protein:Creat Ratio 209 mg/g CRE (0-200)
[2022-11-10] MEDS: Acetaminophen/Butalbital/Caffe 1 Tablet 2 TABLET PO (18:24)
[2022-11-10] MEDS: Betamethasone/Betamethasone 30 MG/5 ML Vial 12 MG IM (18:54)
[2022-11-10] MEDS: Lactated Ringers 1,000 ML 999 ML IV (20:03)
[2022-11-10] MEDS: Acetaminophen 500 MG Tablet 1000 MG PO (20:18)
[2022-11-10] MEDS: NIFEdipine 30 MG Tablet PO (20:33)
[2022-11-10 22:59] LABS: Bedside Glucose 171 mg/dL (74-106)
[2022-11-10 23:25] LABS: Bedside Glucose 147 mg/dL (74-106)
[2022-11-11] VITALS (18 sets, daily range): BP systolic 121–144; BP diastolic 59–85; PULSE 73–100; TEMP 36.3–36.8; O2SAT 99
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
[2022-11-11] MEDS: Acetaminophen 500 MG Tablet 1000 MG PO (04:50)
[2022-11-11 04:52] LABS: Absolute Lymphocyte Count 1.76 X10^3/uL (0.83-4.51); Absolute Neutrophil Count 10.7 X10^3/uL (2.0-7.7); Basophil# 0.04 X10^3/uL; Basophil% 0.3 % (0-1); Lymphocyte # 1.76 X10^3/ul (0.83-4.51); Lymphocyte % 13.7 % (19-41); Mean Corp Hgb Conc 31.4 g/dL (32-36); Mean Corpuscular Hgb 27.7 pg (27.0-32.0); Mean Corpuscular Volume 88.2 fL (81-99); Mean Platelet Vol. 10.3 fl (6.2-12.0); Monocyte# 0.25 X10^3/uL; Monocyte% 1.9 % (0-10); NRBC Flagged by Analyzer 0 % (0-5); Neutrophil # 10.68 X10^3/uL (2.7-7.7); Neutrophil % 83.2 % (47-70); Platelet Count 299 K/mm3 (150-450); RBC Distribution Width SD 41.6 fl (35.1-43.9); Red Blood Count 3.97 M/mm3 (4.2-5.4); White Blood Count 12.8 K/mm3 (4.4-11.0)
[2022-11-11 05:12] LABS: ALB/GLOB Ratio 0.5 RATIO (0.9-2.4); AST(SGOT) 19 U/L (15-37); Alanine Aminotransfer ALT/SGPT 34 U/L (13-56); Albumin, Serum 2.4 g/dL (3.2-5.0); Alkaline Phosphatase 114 U/L (45-117); Anion Gap 4 (5-15); BUN 6 mg/dL (7-18); BUN/Creat Ratio 9.4 RATIO (10-20); Calcium,Total 9.1 mg/dL (8.5-10.1); Chloride 108 mmol/L (98-107); Creatinine, Serum 0.64 mg/dL (0.55-1.02); EST Glomerular Filtration Rate 119 mL/min (>60); Est Glom Filt Rate - Afr Amer 144 mL/min (>60); Estimated Creatinine Clearance 114.02 ml/min; Globulin 4.4 g/dL (2.2-4.2); Glucose 163 mg/dL (74-106); Potassium 4.1 mmol/L (3.5-5.1); Protein, Total 6.8 g/dL (6.4-8.2); Sodium Level 138 mmol/L (136-145)
--- NOTE | 2022-11-11 05:49 | CT_ITS ---
INDICATION: headache. 28 WEEKS EXAMINATION: CT BRAIN WITH AND WITHOUT CONTRAST - CT Head or Brain WO/W Contrast Injection TECHNIQUE: Multiple axial images were obtained of the brain with and without IV contrast. A radiation dose optimization technique was used for this scan. IV Contrast dosage and agent: RADIATION DOSAGE (If Supplied By Facility): CTDIvol = ( 44.99 ) mGy, DLP = ( 1479.73 ) mGycm COMPARISON: None. FINDINGS: BRAIN: No acute bleed. No edema. Boyd-white matter differentiation is maintained. No abnormal contrast enhancement or enhancing mass lesion on postcontrast images. VENTRICLES AND SULCI: Not dilated. EXTRA-AXIAL: No hemorrhage, fluid collection, or mass. CALVARIUM / SKULL BASE: Unremarkable. FACE/SINUSES: Unremarkable. SOFT TISSUES: Unremarkable. CT/Brain/Head W/WO Contrast IMPRESSION: No acute abnormality. Electronically Signed: Pippa Maradiaga MD at 6:45 EDT ,
[2022-11-11] MEDS: oxyCODONE 5 MG Tablet PO (06:05)
--- NOTE | 2022-11-11 07:00 | US_ITS ---
STUDY: SECOND AND THIRD TRIMESTER OBSTETRICAL ULTRASOUND - LIMITED REASON FOR EXAM: Female, 27 years old gestational hypertension LMP: 04/27/2022 PRIOR ULTRASOUND: 08/11/2022 TECHNIQUE: Transabdominal TECHNICAL QUALITY: Adequate. FINDINGS: There is a single intrauterine fetus. The fetus is in a cephalic presentation. There is demonstrated cardiac activity with a heart rate of 138 bpm. There is a normal amniotic fluid volume. The largest amniotic fluid pocket measures 5.6 cm. The amniotic fluid index (SEEMA) is 15.8 cm. The placenta is posterior in location and is not low lying. There are Grade 0 placental changes. The cervix measures 3.3 cm cm in length. BIOMETRY: BPD: 7.3 cm: 29 weeks, 2 days HC: 26.6 cm: 29 weeks, 0 days AC: 26.1 cm: 30 weeks, 2 days FL: 5.5 cm: 29 weeks, 2 days Age by LMP: 28 weeks, 2 days. MAI by LMP: 02/01/2023. age by prior US: weeks, days. MAI by prior US: . age by current US: 29 weeks, 1 days. MAI by current US: 01/26/2023. Estimated weight: 1466 grams, +/- 20 grams, 89 percentile. Gender: US/OB Limited With Biometrics IMPRESSION: Living intrauterine of 29 weeks 1 day as described above. Electronically Signed: Yoni Vang MD at 8:33 EDT ,
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
[2022-11-11] MEDS: proMETHazine 25 MG Tablet PO ×2 (11:13→16:22)
[2022-11-11 11:15] LABS: Bedside Glucose 135 mg/dL (74-106)
[2022-11-11 11:31] LABS: Bedside Glucose 106 mg/dL (74-106)
--- NOTE | 2022-11-11 11:46 | MRI_ITS ---
STUDY: EXAMINATION - MRV BRAIN WITHOUT CONTRAST REASON FOR EXAM: Female, 27 years old. headache, high bp, patient TECHNIQUE: 3D [id number] (TOF) imaging was performed in a raquel MRI scanner. COMPARISON: None. FINDINGS: Normal flow within the superior sagittal sinus. Normal flow within the superficial cortical veins. Normal flow within the paired internal cerebral veins, vein of Evans and straight sinus. Normal flow within the bilateral transverse and sigmoid sinuses. Normal flow within the bilateral jugular bulbs. MRI/MRV Head Without Contrast IMPRESSION: Normal unenhanced MRV of the brain. Electronically Signed: Jayden Dow MD at 16:22 EDT ,
--- NOTE | 2022-11-11 11:52 | MRI_ITS ---
STUDY: MRA OF THE HEAD WITHOUT CONTRAST REASON FOR EXAM: Female, 27 years old. headache, high bp, TECHNIQUE: 3-D [id number] (TOF) imaging was performed with MIPs. The study was performed unenhanced. COMPARISON: None. FINDINGS: Normal bilateral petrous carotid arteries. Normal right cavernous carotid artery with a normal supraclinoid bifurcation. Normal left cavernous carotid artery with a normal supraclinoid bifurcation. Normal right A1 segments of the anterior cerebral artery. Normal left A1 segments of the anterior cerebral artery. Anterior communicating artery not visualized consistent with normal variant Normal bilateral A2 segments of the anterior cerebral arteries. Normal right M1 and M2 segments of the middle cerebral arteries, with a normal M1 bifurcation. Normal left M1 and M2 segments of the middle cerebral arteries, with a normal M1 bifurcation. Normal right posterior communicating artery (PCOM). Normal left posterior communicating artery (PCOM). Normal bilateral vertebral arteries. Normal basilar artery with a normal basilar bifurcation. The visualized bilateral superior cerebellar (SCA) arteries are normal. Normal bilateral P1, P2 and visualized P3 segments of the posterior cerebral arteries. There is no demonstrated aneurysm of the [place]. There is no major vessel occlusion or hemodynamically significant stenosis. There is no demonstrated abnormality of the visualized brain. MRI/MRA Head ONLY without Contrast IMPRESSION: Normal MRA of the head Electronically Signed: Jayden Dow MD at 16:23 EDT ,
--- NOTE | 2022-11-11 11:58 | MRI_ITS ---
STUDY: MRI BRAIN WITHOUT CONTRAST REASON FOR EXAM: Female, 27 years old. headache, high bp TECHNIQUE: Standardized multiplanar fat and water weighted pulse sequences were obtained. COMPARISON: None. FINDINGS: Normal size of the ventricles and extra-axial spaces for the patient''s age. Normal white matter tracts of the supratentorial brain. Normal bilateral basal ganglia. Normal thalami. There is no extra-axial fluid accumulation. Normal flow voids within the major intracranial circulation suggesting patency by spin echo criteria. Normal sella turcica, pituitary gland, infundibular stalk, optic chiasm and hypothalamus. Normal tectal plate and pineal gland. Normal midbrain, cherry and medulla. Normal cerebellum. Normal basal cisterns. Normal bilateral temporal bones. Normal bilateral internal auditory canals. No demonstrated orbital abnormality, within the constraints of a routine brain study. Normal visualized paranasal sinuses. Normal calvarium and skull base. Normal visualized soft tissue structures. Normal visualized upper cervical spine. MRI/Brain without Contrast IMPRESSION: Normal unenhanced MRI of the brain. Electronically Signed: Jayden Dow MD at 16:21 EDT ,
[2022-11-11 16:37] LABS: Bedside Glucose 106 mg/dL (74-106)
[2022-11-11] MEDS: NIFEdipine 30 MG Tablet PO (19:38)
[2022-11-11] MEDS: Betamethasone/Betamethasone 30 MG/5 ML Vial 12 MG IM (19:39)
[2022-11-11 21:38] LABS: 24HR. Urine Creatinine 1.56 g/24 HR (0.70-1.90)
[2022-11-11 21:39] LABS: 24 Hour Urine Protein 357.5 mg/24HR (<150 MG/24HR); 24HR. UA Prot. Total Volume 2500 mL; Urine Protein (24 Hour) 14.3 mg/dL (<11.9)
--- NOTE | 2022-11-11 21:50 | PN_ITS ---
Progress Note pt states that she is feeling better and wants to go home now. Neuro consult was negative and all brain imaging was negative. However, her24 hr urine just returned slightly elevated plan to observe over night and also, now that it is close to 10 pm, pharmacies will not be open to give and ensure bedtime and am insulin. plan to continue q2 hr bp's ambien prn percocet prn bpp in am if headache severe again will re consult with [facility] for transport.
[2022-11-11] MEDS: Insulin NPH Human 100 UNITS/ML PEN 20 UNITS SC (22:31)
[2022-11-11 22:39] LABS: Bedside Glucose 146 mg/dL (74-106)
[2022-11-12] VITALS (38 sets, daily range): BP systolic 97–147; BP diastolic 52–85; PULSE 77–106; RESP 16; TEMP 36.3–37; O2SAT 97–100
--- NOTE | 2022-11-12 00:08 | US_ITS ---
STUDY: OBSTETRICAL ULTRASOUND - BIOPHYSICAL PROFILE REASON FOR EXAM: Female, 27 years old assessment LMP: April 27, 2022. PRIOR ULTRASOUND: Comparison is made with prior study dated November 11, 2022. TECHNIQUE: Transabdominal TECHNICAL QUALITY: Adequate. FINDINGS: There is a single intrauterine fetus. The fetus is in a cephalic presentation. There is demonstrated cardiac activity with a heart rate of 152 bpm. There is a normal amniotic fluid volume. The largest amniotic fluid pocket measures 5.0 cm. The amniotic fluid index (SEEMA) is 15.3 cm. The placenta is posterior in location and is not low lying. There are Grade 0 placental changes. Age by LMP: 28 weeks, 3 days. MAI by LMP: February 01, 2023. age by prior US: 29 weeks, 2 days. MAI by prior US: January 26, 2023. BIOPHYSICAL PROFILE: Breathing Movements (FBM): 2 Gross Body Movements (GBM): 2 Tone (FT): 2 Amniotic Fluid Volume (AFV): 2 TOTAL SCORE: US/Biophysical Prof W/O Non Stres IMPRESSION: Normal biophysical profile of 11/11. Electronically Signed: Christiano Johnson MD at 9:09 EDT ,
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
[2022-11-12 07:25] LABS: Hematocrit 35.9 % (37-47); Hemoglobin 11.4 g/dL (12.0-15.0); Mean Corp Hgb Conc 31.8 g/dL (32-36); Mean Corpuscular Hgb 28.2 pg (27.0-32.0); Mean Corpuscular Volume 88.9 fL (81-99); Mean Platelet Vol. 10.7 fl (6.2-12.0); Platelet Count 325 K/mm3 (150-450); RBC Distribution Width CV 13.2 % (11.6-14.6); Red Blood Count 4.04 M/mm3 (4.2-5.4); White Blood Count 16.5 K/mm3 (4.4-11.0)
[2022-11-12 07:34] LABS: Protein, Urine (Random) 12.7 mg/dL (<11.9); Protein:Creat Ratio 262 mg/g CRE (0-200)
[2022-11-12] MEDS: Magnesium Sulfate 4gm/100mL 4 GM/100 ML IV.SOLN. IV (07:37)
[2022-11-12] MEDS: Lactated Ringers 1,000 ML 25 ML IV (07:37)
[2022-11-12 07:47] LABS: AST(SGOT) 28 U/L (15-37); Alanine Aminotransfer ALT/SGPT 44 U/L (13-56); Creatinine, Serum 0.74 mg/dL (0.55-1.02); EST Glomerular Filtration Rate 101 mL/min (>60); Est Glom Filt Rate - Afr Amer 122 mL/min (>60); Estimated Creatinine Clearance 98.61 ml/min; LDH 163 U/L (84-246)
[2022-11-12 08:05] LABS: Bedside Glucose 127 mg/dL (74-106)
[2022-11-12 08:09] LABS: Partial Thromboplast Time 25.6 Seconds (24.1-36.2); Prothrombin Time (Protime)PT. 13.3 SECONDS (11.7-14.9)
[2022-11-12 09:44] LABS: Bedside Glucose 106 mg/dL (74-106)
[2022-11-12 12:55] LABS: Bedside Glucose 94 mg/dL (74-106)
== END 2022-11-12 13:15 | disposition home or self-care (01) ==
LOC: WPOUT 16:35 → WP 16:36
PROVIDERS: Obstetrics & Gynecology; Referring Provider Registered Nurse; Visit Provider Registered Nurse
DX: O13.2 Gestational [pregnancy-induced] hypertension without significant proteinuria, second trimester (principal); Z3A.21 21 weeks gestation of pregnancy; O98.312 Other infections with a predominantly sexual mode of transmission complicating pregnancy, second trimester; A60.00 Herpesviral infection of urogenital system, unspecified; O99.012 Anemia complicating pregnancy, second trimester; O23.42 Unspecified infection of urinary tract in pregnancy, second trimester; O99.212 Obesity complicating pregnancy, second trimester; O24.419 Gestational diabetes mellitus in pregnancy, unspecified control; O99.342 Other mental disorders complicating pregnancy, second trimester; F41.9 Anxiety disorder, unspecified; O99.891 Other specified diseases and conditions complicating pregnancy; R51.9 Headache, unspecified
CPT/HCPCS: 96365; 96375; 96376; 36415; 59025; 59050; 70470; 70544; 70551; 76816; 76819; 80053; 81050; 82565; 82570; 82962; 83615; 84156; 84450; 84460; 84550; 85025; 85027; 85610; 85730; 96372; 99221; J7120; Q9967; A4216; G0378; J0702